=== PATIENT | male | born 1980 | race Caucasian/White ===

== ENCOUNTER 2021-08-17 12:39 | Emergency (ER) | payer BC ==
[~2021-08-17] VITALS: Ht 182.9 cm; Wt 90.9 kg
--- NOTE | 2021-08-17 13:10 | PHYS DOC ---
General Adult EDM: Chief Complaint: SHORTNESS OF BREATH HPI: HPI: Patient is a 40-year-old male who presents to the emergency department today for loss of taste/smell, shortness of breath, nonproductive cough, headache and sweats that started on Tuesday. Patient denies fever, chest pain, nausea, vomiting. He denies any current pain. He is mildly tachycardic in the emergency department with a heart rate of 117. He is hypertensive with a blood pressure of 207/134. He reports that he has been told that he has hypertension but does not take any medications. Review of Systems: Review of Systems: Constitutional: negative unless reported in HPI Eyes: negative unless reported in HPI HENT: negative unless reported in HPI Respiratory: negative unless reported in HPI Cardiovascular: negative unless reported in HPI GI: negative unless reported in HPI : negative unless reported in HPI Musculoskeletal: negative unless reported in HPI Integument: negative unless reported in HPI Neurologic: negative unless reported in HPI Endocrine: negative unless reported in HPI Lymphatic: negative unless reported in HPI Psychiatric: negative unless reported in HPI Heart Score: C/O Chest Pain: No Risk Factors: Risk Factors: DM, Current or recent (<one month) smoker, HTN, HLP, family history of CAD, obesity. Risk Scores: Score 0 - 3: 2.5% MACE over next 6 weeks - Discharge Home Score 4 - 6: 20.3% MACE over next 6 weeks - Admit for Clinical Observation Score 7 - 10: 72.7% MACE over next 6 weeks - Early Invasive Strategies Allergies: Allergies: Allergies Coded Allergies Type Severity Reaction Last Updated Verified No Known Drug Allergies 08/17/21 No Physical Exam: PE: Constitutional: Well developed, well nourished, no acute distress, non-toxic appearance. [] HENT: Normocephalic, atraumatic, bilateral external ears normal, oropharynx moist, no oral exudates, nose normal. [] Eyes: PERRL, EOMI, conjunctiva normal, no discharge. [] Neck: Normal range of motion, no tenderness, supple, no stridor. [] Cardiovascular:Heart rate tachycardia rhythm, no murmur [] Lungs & Thorax: Bilateral breath sounds clear to auscultation [] Abdomen: Bowel sounds normal, soft, no tenderness, no masses, no pulsatile masses. [] Skin: Warm, dry, no erythema, no rash. [] Back: normal ROM Extremities: No tenderness, no cyanosis, no clubbing, ROM intact, no edema. [] Neurologic: Alert and oriented X 3, normal motor function, normal sensory function, no focal deficits noted. [] Psychologic: Affect normal, judgement normal, mood normal. [] Current Patient Data: Labs: Laboratory Tests Test 08/17/21 13:00 08/17/21 13:30 08/17/21 13:42 Influenza Type A Antigen Negative Influenza Type B Antigen Negative SARS-CoV-2 Antigen (Rapid) Positive White Blood Count 6.8 x10^3/uL Red Blood Count 5.31 x10^6/uL Hemoglobin 18.0 g/dL Hematocrit 49.5 % Mean Corpuscular Volume 93 fL Mean Corpuscular Hemoglobin 34 pg Mean Corpuscular Hemoglobin Concent 36 g/dL Red Cell Distribution Width 12.9 % Platelet Count 212 x10^3/uL Neutrophils (%) (Auto) 54 % Lymphocytes (%) (Auto) 35 % Monocytes (%) (Auto) 7 % Eosinophils (%) (Auto) 4 % Basophils (%) (Auto) 1 % Neutrophils # (Auto) 3.7 x10^3/uL Lymphocytes # (Auto) 2.3 x10^3/uL Monocytes # (Auto) 0.5 x10^3/uL Eosinophils # (Auto) 0.2 x10^3/uL Basophils # (Auto) 0.0 x10^3/uL Sodium Level 139 mmol/L Potassium Level 3.2 mmol/L Chloride Level 102 mmol/L Carbon Dioxide Level 22 mmol/L Anion Gap 15 Blood Urea Nitrogen 14 mg/dL Creatinine 1.0 mg/dL Estimated GFR (Cockcroft-Gault) 81.9 BUN/Creatinine Ratio 14 Glucose Level 99 mg/dL Calcium Level 8.1 mg/dL Total Bilirubin 0.8 mg/dL Aspartate Amino Transf (AST/SGOT) 420 U/L Alanine Aminotransferase (ALT/SGPT) 251 U/L Alkaline Phosphatase 129 U/L Troponin I High Sensitivity 15 ng/L Total Protein 7.9 g/dL Albumin 3.3 g/dL Albumin/Globulin Ratio 0.7 Urine Collection Type Void Urine Color Lu Urine Clarity Clear Urine pH 6.0 Urine Specific [place] 1.020 Urine Protein >=300 mg/dL Urine Glucose (UA) Negative mg/dL Urine Ketones (Stick) 15 mg/dL Urine Blood Small Urine Nitrite Negative Urine Bilirubin Small Urine Urobilinogen Dipstick 1.0 mg/dL Urine Leukocyte Esterase Negative Urine RBC 1-2 /HPF Urine WBC 5-10 /HPF Urine Squamous Epithelial Cells Few /LPF Urine Bacteria Few /HPF Urine Hyaline Casts Moderate /HPF Urine Granular Casts Few /HPF Current Medications Medications (Trade) Dose Ordered Sig/Randee Route PRN Reason Start Time Stop Time Status Last Admin Dose Admin Sodium Chloride 1,000 ml @ 1,000 mls/hr Q1H IV 08/17/21 13:15 08/17/21 14:14 DC 08/17/21 13:33 EKG: EKG: EKG performed by ER staff at 1333 shows sinus tach with a rate of 113, no STEMI read by Dr. Joyner at 1336 [] Radiology/Procedures: Radiology/Procedures: []PROCEDURE: PORTABLE CHEST 1V EXAM: Chest, single view. HISTORY: Shortness of air. Cough. COMPARISON: None. FINDINGS: A frontal view the chest is obtained. There is no infiltrate, pleural effusion or pneumothorax. The heart is normal in size. IMPRESSION: No acute pulmonary finding. Electronically signed by: Henrietta Rivera MD (08/17/2021 1:30 PM) [id number] DICTATED and SIGNED BY: HENRIETTA RIVERA MD DATE: 08/17/21 [id number] 0 Course & Med Decision Making: Course & Med Decision Making Darted onPertinent Labs and Imaging studies reviewed. (See chart for details) Patient presents to the emergency department for loss of taste/smell, shortness of breath, cough, sweats Tuesday. Patient is hypertensive with blood pressure 207/134. He does not take any medications for his hypertension. Work-up in the ER consisted of blood work, EKG, chest x-ray. Patient was given IV fluids to help with tachycardia. CBC unremarkable. hypokalemia noted-replaced in ER. negative troponin. Liver enzymes elevated, patient educated on etoh cessation. CXR unremarkable. UA showed proteins and ketones. I discussed case with supervising physician. Patient reports that his urine was dark today and typically is when he drinks alcohol and admits drinking "hard liquor" yesterday for the [employer] game. CK 364. BP recheck is 215-95. Patient will be discharged with chlorthalidone and given referral for pcp. Evelia Disclaimer: Evelia Disclaimer: This electronic medical record was generated, in whole or in part, using a voice recognition dictation system. Departure Departure Impression: Primary Impression: COVID-19 Additional Impression: Hypertension Qualified Codes: I10 - Essential (primary) hypertension Disposition: HOME / SELF CARE / HOMELESS Condition: GOOD Referrals: NO PCP (PCP) Patient Instructions: Hypertension Additional Instructions: You were seen in the emergency department today for Covid symptoms. You are Covid positive. Please self isolate per CDC guidelines. You are also noted to have an elevated blood pressure. You are being discharged home with blood pr essure medication, please make sure that you are taking this as directed. Would also advise you to purchase a blood pressure cuff monitor your blood pressure twice a day and keep a log. Your potassium was mildly low please make sure that you are eating potassium rich foods like green leafy vegetables and bananas at home. For your cough you can take Delsym [id number]. For your shortness of breath you can use the albuterol inhaler that is prescribed for you. Increase your fluids and rest. Take Tylenol and ibuprofen for any pain or fevers. Follow-up with your primary care provider tomorrow. If you not have a primary care provider, he can follow-up with one of the primary care providers given to you today. Return to the emergency department if you develop shortness of breath, chest pain, high fevers refractory to treatment, tractable nausea or vomiting, weakness. You have been tested for or diagnosed with COVID-19. It is an infection caused by a new type of coronavirus. COVID-19 will cause cold-like or mild flu symptoms in most. It can cause more severe symptoms like problems breathing in some. There is no treatment for COVID-19. The body will clear the infection over time. Self-care will help to ease discomfort. Steps to Take: Self-Care Rest as needed. Healthy habits may help you feel better. Steps include: Choose healthy foods including fruits and vegetables. Drink water throughout the day. Get plenty of sleep each night. If you smoke, try to quit. It may ease breathing. Avoid alcohol. Keep Others Healthy The virus can spread to others. Droplets are released every time you sneeze or cough. The droplets can get into the mouth, nose, or eyes of people near you and lead to infection. To lower the chances of spreading COVID-19 to others: Stay at home until your doctor has said it is safe to leave. If you tested positive this will mean staying isolated until both of the following are true: At least 7 days have passed since the start of illness. You are free of fever for at least 72 hours without the use of medicine. During this time: - Avoid public areas, events, or transportation. Do not return to work or school until your doctor has said it is safe to do so. - Call ahead if you need to go to a medical center. Let them know you may have COVID-19. It will help them guide you where to go. They may also ask you to wear a facemask when you come to the office. - If you call for emergency medical services, let them know you may have COVID- 19. While at home: - Try to avoid close contact with others. Stay about 6 feet away. - If possible, spend most of your time in a separate room from others. - Use a face mask if you will be in close contact with others such as sharing a room or vehicle. - Have someone wipe down common surfaces in the home. Use household clarifying plant operator every day on areas like doorknobs, counters, or sinks. - Cough or sneeze into a tissue. Throw the tissue away right after use. If a tissue is not available, cough or sneeze into your elbow. - Wash your hands often. Wash them after sneezing or coughing. Use soap and water and wash for at least 20 seconds. Alcohol based hand dry cleaner can be used if soap and water is not available. - Do not prepare food for others. Avoid sharing personal items like forks, spoons, or toothbrushes. - Avoid close contact with pets while you are sick. There is no evidence of the virus passing to pets. This is a safety step until more is known about this virus. Isolation can be frustrating. Social interaction can help. Keep in touch with friends and family through phone and tech options. You can still interact with others in your home, just keep a safe distance of about 6 feet. Follow-up: Your doctors office will check in with you to see if there are any changes in your health. You may be asked to keep track of symptoms to share with them. They will also let you know when you are clear to be in public again. Problems to Look Out For: Contact your doctor if your recovery is not going as you expect. Get emergency care if you have problems such as: - Trouble breathing - Nonstop chest pain or pressure - Changes in awareness, confusion, or problems waking - Lips or face have bluish color - Worsening of symptoms If you think you have an emergency, call for emergency medical services right away. As taken from [facility] Chlorthalidone (CHLORTHALIDONE ) 25 Mg Tablet 25 MG PO DAILY for DIURETIC for 30 Days, #30 TAB 0 Refills Prov: WASHINGTON MUÑOZ APRN 08/17/21 WASHINGTON MUÑOZ APRN Aug 17, 2021 13:10
[2021-08-17 13:31] LABS: INFLUENZA A PATIENT NEGATIVE (NEGATIVE); INFLUENZA B PATIENT NEGATIVE (NEGATIVE)
--- NOTE | 2021-08-17 13:32 | RAD ---
EXAM: Chest, single view. HISTORY: Shortness of air. Cough. COMPARISON: None. FINDINGS: A frontal view the chest is obtained. There is no infiltrate, pleural effusion or pneumotho rax. The heart is normal in size. IMPRESSION: No acute pulmonary finding. Electronically signed by: Henrietta Rivera MD (08/17/2021 1:30 PM) [id number]
[2021-08-17] MEDS: IV NORMAL SALINE 1000ML BAG 1,000 ML IV SCH (13:33)
[2021-08-17 13:40] LABS: BASO % 1 % (0-3); EOS # 0.2 x10^3/uL (0.0-0.7); EOS % 4 % (0-3); HEMATOCRIT 49.5 % (39.0-53.0); LYMPH # 2.3 x10^3/uL (1.0-4.8); LYMPH % 35 % (24-48); MEAN CORPUSCULAR HEMOGLOBIN 34 pg (25-35); MEAN CORPUSCULAR HGB CONC 36 g/dL (31-37); MEAN CORPUSCULAR VOLUME 93 fL (79-100); MONO # 0.5 x10^3/uL (0.0-1.1); MONO % 7 % (0-9); NEUT # 3.7 x10^3/uL (1.8-7.7); NEUT % 54 % (31-73); PLATELET COUNT 212 x10^3/uL (140-400); RED BLOOD COUNT 5.31 x10^6/uL (4.30-5.70); RED CELL DISTRIBUTION WIDTH 12.9 % (11.5-14.5); WHITE BLOOD COUNT 6.8 x10^3/uL (4.0-11.0)
[2021-08-17 13:50] LABS: CALCIUM 8.1 mg/dL (8.5-10.1); GFR 81.9; POTASSIUM 3.2 mmol/L (3.5-5.1)
[2021-08-17 13:52] LABS: BILIRUBIN,URINE SMALL (NEG); CLARITY,URINE CLEAR; COLOR,URINE AMBER; NITRITE,URINE NEGATIVE (NEG); PROTEIN,URINE >=300 mg/dL (NEG-TRACE)
[2021-08-17 13:56] LABS: ALBUMIN 3.3 g/dL (3.4-5.0); ALBUMIN/GLOBULIN RATIO 0.7 (1.0-1.7); TOTAL BILIRUBIN 0.8 mg/dL (0.2-1.0); TOTAL PROTEIN 7.9 g/dL (6.4-8.2)
[2021-08-17 14:03] LABS: BACTERIA,URINE FEW /HPF (0-FEW)
[2021-08-17 14:04] LABS: GRANULAR CASTS,URINE FEW /HPF; HYALINE CASTS, URINE MODERATE /HPF
[2021-08-17 14:23] VITALS: BP 215/95
[2021-08-17] MEDS: POTASSIUM CHLORIDE 20 MEQ TABLET.ER. PO ONE (14:37)
[2021-08-17] MEDS ORDERED: CHLO25TA10 PO (14:50)
--- NOTE | 2021-08-17 18:54 | EKG ---
[facility] [address] [place] [id number] Test Date: 2021-08-17 Test Time: 13:33:30 Pat Name: ZEINAB POTTER Department: Room: Gender: M Product Info Specialist: : [id number] Requested By: WASHINGTON MUÑOZ Order Number: [id number] Reading MD: Jeremias De Dios Measurements Intervals Morrison Rate: 113 P: 38 NE: 132 QRS: 28 QRSD: 90 T: 15 QT: 326 QTc: 453 Interpretive Statements SINUS TACHYCARDIA LEFT ATRIAL ABNORMALITY ABNORMAL ECG RI6.02 No previous ECG available for comparison Electronically Signed On 08-19-2021 19:38:50 PRESETTER OPERATOR by Jeremias De Dios
== END 2021-08-17 15:15 | disposition home or self-care (01) ==
LOC: ER 12:39
DX: U07.1 COVID-19 (principal); I10 Essential (primary) hypertension
CPT/HCPCS: 36415; 71045; 80053; 81001; 82550; 84484; 85025; 87086; 87428; 93005; 99285; J7030